=== PATIENT | female | born 1965 | race American Indian/Alaskan Native ===

== ENCOUNTER 2024-03-27 19:36 | Emergency (ER) | payer BC ==
[~2024-03-27] VITALS: Ht 165.1 cm; Wt 95.3 kg
[2024-03-27] MEDS ORDERED: COZAAR25 MG PO (20:10)
[2024-03-27] MEDS ORDERED: AMLODIPINE-OLM1 EAC3 PO (20:10)
[2024-03-27] MEDS ORDERED: MONTELUKAST SODI4 M1 PO (20:10)
[2024-03-27] MEDS ORDERED: CLARITIN5 MG PO (20:10)
[2024-03-27] MEDS ORDERED: METHYLPREDNISOLONE SOD SUCC 125 MG VIAL IV STA (20:23)
[2024-03-27 21:00] LABS: HEMATOCRIT 38.8 % (36.0-45.00); HEMOGLOBIN 12.9 g/dL (12.0-15.00); MEAN CELL VOLUME 88.8 fL (80.00-100.00); MEAN CORPUSCULAR HEMOGLOBIN 29.5 pg (27.00-32.0); MEAN CORPUSCULAR HGB CONC 33.2 g/dl (32.0-36.0); PLATELET COUNT 326 K/uL (150-450); RED BLOOD COUNT 4.38 M/uL (4.00-6.00); RED CELL DISTRIBUTION WIDTH 14.3 % (11.5-14.5)
[2024-03-27 21:22] LABS: ALBUMIN 3.6 gm/dL (3.4-5.0); BILIRUBIN TOTAL 0.24 mg/dL (0.3-1.2); CALCIUM 9.1 mg/dL (8.5-10.1); CREATININE SERUM 1.08 mg/dL (0.55-1.02); GFR 51.93; GLOBULINA 4.2 G/DL (2.4-3.5); POTASSIUM 4.41 mEq/L (3.5-5.1); TOTAL PROTEIN 7.8 gm/dL (6.4-8.2)
[2024-03-27 22:09] LABS: PH,URINE 5.5 (5.0-8.0); URINE APPEARANCE Clear; URINE BILIRRUBIN Negative (NEGATIVE); URINE BLOOD Negative; URINE COLOR Yellow; URINE GLUCOSE Negative (NEGATIVE); URINE KETONE Trace (NEGATIVE); URINE LEUKOCYTE Negative; URINE NITRATE Negative; URINE PROTEIN Trace (NEGATIVE); URINE UROBILINOGEN 0.2 E.U./dl
[2024-03-27 22:10] LABS: URINE BACTERIA 1771.5 uL (0.0-1933); URINE RBC 2.2 uL (0.0-20.8); URINE WBC 13.9 uL (0.0-23.2)
[2024-03-27 22:13] LABS: URINE CAST 0.61 uL (0.0-1.40)
[2024-03-27] MEDS ORDERED: MEDROLPACK PO (22:55)
== END 2024-03-28 00:03 | disposition home or self-care (01) ==
LOC: ER 19:38
PROVIDERS: General Practice
DX: R60.0 Localized edema (principal); T78.40XA Allergy, unspecified, initial encounter; R21 Rash and other nonspecific skin eruption; I10 Essential (primary) hypertension